=== PATIENT | female | born 1980 | race Caucasian/White ===

== ENCOUNTER → 2018-04-07 | Outpatient (CLI) | payer OTHER | LOC: M RAD 12:03 | DX: N63.20 Unspecified lump in the left breast, unspecified quadrant (principal); Z33.1 Pregnant state, incidental | CPT/HCPCS: 76642 ==

== ENCOUNTER → 2018-11-18 | Outpatient (CLI) | payer OTHER ==
[2018-11-18 17:22] LABS: BASO # 0.1 10^3/uL (0.0-0.2); BASO % 1.1 % (0.0-1.0); EOS # 0.1 10^3/uL (0.0-0.50); HEMATOCRIT 43.3 % (36.0-47.0); HEMOGLOBIN 14.3 g/dl (12.0-15.5); LYMPH # 2.5 10^3/uL (1.5-4.5); LYMPH % 38.4 % (24.0-44.0); MEAN CORPUSCULAR HEMOGLOBIN 30.4 pg (27.0-33.0); MEAN CORPUSCULAR VOLUME 91.9 fl (80.0-96.0); MONO # 0.6 10^3/uL (0.0-0.8); MONO % 9.3 % (0.0-5.0); NEUTROPHILS # 3.2 10^3/uL (1.8-7.7); NEUTROPHILS % 48.9 % (36.0-66.0); PLATELET COUNT, AUTOMATED 328 10^3/uL (150-450); RED BLOOD COUNT 4.71 10^6/uL (4.00-5.40); WHITE BLOOD COUNT 6.6 10^3/uL (4.0-10.0)
[2018-11-18 17:36] LABS: ALBUMIN 4.1 GM/DL (3.2-5.2); ALT/SGPT 23 U/L (12-78); BILIRUBIN,TOTAL 0.3 MG/DL (0.2-1.0); BLOOD UREA NITROGEN 6 MG/DL (7-18); CALCIUM LEVEL 9.4 MG/DL (8.5-10.1); CARBON DIOXIDE LEVEL 27 MEQ/L (21-32); CHLORIDE LEVEL 107 MEQ/L (98-107); CHOLESTEROL LEVEL 236 MG/DL (<200); CHOLESTEROL RISK RATIO 2.205 (<5); CREATININE FOR GFR 0.83 MG/DL (0.55-1.30); FERRITIN 26 NG/ML (8-252); FREE T4 0.75 NG/DL (0.76-1.46); GLOMERULAR FILTRATION RATE > 60.0 (>60); GLUCOSE, FASTING 92 MG/DL (70-100); HDL CHOLESTEROL 107 MG/DL (>40); IRON (FE) 74 UG/DL (50-170); LDL CHOLESTEROL 107 MG/DL (<100); NON-HDL-C 129 MG/DL; PERCENT SATURATION 21.4 % (13.2-45.0); POTASSIUM SERUM 4.1 MEQ/L (3.5-5.1); SODIUM LEVEL 141 MEQ/L (136-145); TOTAL IRON BINDING CAPACITY 345 UG/DL (250-450); TOTAL PROTEIN 7.1 GM/DL (6.4-8.2); TRIGLYCERIDES LEVEL 108 MG/DL (<150)
[2018-11-18 17:37] LABS: VITAMIN B12 LEVEL > 2000 PG/ML
[2018-11-18 17:39] LABS: FOLATE > 24.0 NG/ML
--- NOTE | 2018-11-19 01:20 | REP ---
Clinical: Right pelvic/hip pain. Technique: Neutral and frog lateral views of the right hip. Findings: Normal age appropriate appearance to the right hip. Osseous structures, joint spaces, and surrounding soft tissues are unremarkable. No overt osteoarthritic degenerative changes are identified. No acute fracture or dislocation. Impression: Age-appropriate right hip radiographs. Electronically Signed by Arthur Camacho MD 11/19/2018 01:12 A
--- NOTE | 2018-11-19 01:41 | REP ---
Clinical: Pelvic and perineal pain. Technique: Two AP views of the pelvis. Findings: Osseous structures, joint spaces, and surrounding soft tissues are normal for age. No significant arthritic changes are appreciated. No acute fracture or dislocation. Sacroiliac joints appear symmetric and normal. Impression: Normal age-appropriate pelvic radiograph. Electronically Signed by Arthur Camacho MD 11/19/2018 01:33 A
--- NOTE | 2018-11-19 02:04 | REP ---
Clinical: Right knee pain. Technique: AP, lateral, bilateral oblique and sunrise views of the right knee. Findings: Very subtle increase sclerosis to the tibial plateau with minimal predominantly medial joint space narrowing. Subtle fraying along the anterior patellar margin may reflect tendinopathy. Remainder examination is relatively normal. No acute fracture or dislocation. No effusion. Impression: Mild arthritic changes. Electronically Signed by Arthur Camacho MD 11/19/2018 01:56 A
== END ==
LOC: M SMT 14:22
PROVIDERS: ATTEND Physician Assistant
DX: M17.11 Unilateral primary osteoarthritis, right knee (principal); R10.2 Pelvic and perineal pain; N92.0 Excessive and frequent menstruation with regular cycle

== ENCOUNTER → 2019-01-13 | Outpatient (CLI) | payer OTHER ==
[2019-01-13 10:36] LABS: FREE T4 0.76 NG/DL (0.76-1.46); THYROID STIMULATING HORMONE 1.82 uIU/ML (0.358-3.740)
== END ==
LOC: M SMT 09:06
PROVIDERS: ATTEND Physician Assistant
DX: Z13.29 Encounter for screening for other suspected endocrine disorder (principal)

== ENCOUNTER → 2019-01-16 | Outpatient (CLI) | payer OTHER ==
--- NOTE | 2019-01-18 12:17 | REP ---
MRI RIGHT KNEE: TECHNIQUE: Axial proton density fat saturation, sagittal proton density T2 STIR, water excitation, coronal proton density, proton density fat saturation. Menisci demonstrate no evidence of a tear. The cruciate and collateral ligaments are intact. The extensor mechanism is intact. There is minor global chondromalacia. No osteochondral defect is seen. Bone marrow signal is homogeneous and unremarkable. There is no bone marrow edema or occult fracture. Medial and lateral patellar retinacula are intact. There is a small joint effusion, with a small amount of fluid extending into the popliteal fossa immediately. IMPRESSION: No evidence of meniscal tear. The cruciate and collateral ligaments are intact. There is mild global chondromalacia particularly in the medial joint compartment. There is a small joint effusion. Electronically Signed by Gutierrez Liu MD 01/18/2019 01:14 P
== END ==
LOC: M RAD 11:26
PROVIDERS: ATTEND Physician Assistant
DX: M22.41 Chondromalacia patellae, right knee (principal)

== ENCOUNTER → 2019-02-01 | Outpatient (CLI) | payer OTHER ==
--- NOTE | 2019-02-01 11:28 | REP ---
Clinical: Lower back pain. Technique: AP, lateral, bilateral oblique, flexion/extension, and coned-down views of the lumbosacral spine. Findings: Alignment and lordosis maintained. Vertebral bodies are intact and there is no evidence for acute fracture/compression injury or subluxation. Mild endplate sclerosis with mild hypertrophic facet changes and minimal disc space narrowing identified at L5-S1, L4-5, L3-4. Impression: Mild degenerative spondylosis at L3-4 through L5-S1. Electronically Signed by Arthur Camacho MD 02/01/2019 11:18 A
== END ==
LOC: M SMT 11:03
PROVIDERS: ATTEND Family Medicine
DX: M53.3 Sacrococcygeal disorders, not elsewhere classified (principal)

== ENCOUNTER → 2019-03-25 | Outpatient (CLI) | payer OTHER ==
[2019-03-25 14:10] LABS: BASO # 0.1 10^3/uL (0.0-0.2); EOS # 0.1 10^3/uL (0.0-0.5); EOS % 1.7 % (0.0-3.0); HEMATOCRIT 42.2 % (36.0-47.0); HEMOGLOBIN 13.8 g/dl (12.0-15.5); LYMPH # 2.1 10^3/uL (1.5-5.0); LYMPH % 36.4 % (24.0-44.0); MEAN CORPUSCULAR HEMOGLOBIN 29.9 pg (27.0-33.0); MEAN CORPUSCULAR HGB CONC 32.7 g/dl (32.0-36.5); MEAN CORPUSCULAR VOLUME 91.3 fl (80.0-96.0); MONO # 0.6 10^3/uL (0.0-0.8); MONO % 9.9 % (0.0-5.0); NEUTROPHILS # 2.9 10^3/uL (1.5-8.5); NEUTROPHILS % 50.8 % (36.0-66.0); PLATELET COUNT, AUTOMATED 253 10^3/uL (150-450); RED BLOOD COUNT 4.62 10^6/uL (4.00-5.40); WHITE BLOOD COUNT 5.8 10^3/uL (4.0-10.0)
[2019-03-25 14:26] LABS: ALBUMIN 4.1 GM/DL (3.2-5.2); ALT/SGPT 16 U/L (12-78); BILIRUBIN,TOTAL 0.5 MG/DL (0.2-1.0); BLOOD UREA NITROGEN 8 MG/DL (7-18); C REACTIVE PROTEIN QUANTITATIV < 0.30 MG/DL (0.00-0.30); CALCIUM LEVEL 8.7 MG/DL (8.5-10.1); CARBON DIOXIDE LEVEL 28 MEQ/L (21-32); CHLORIDE LEVEL 105 MEQ/L (98-107); FREE T4 0.86 NG/DL (0.76-1.46); GLOMERULAR FILTRATION RATE > 60.0 (>60); GLUCOSE, FASTING 96 MG/DL (70-100); MAGNESIUM LEVEL 2.1 MG/DL (1.8-2.4); POTASSIUM SERUM 4.1 MEQ/L (3.5-5.1); RHEUMATOID FACTOR QUANT < 10.0 IU/ML (<15.0); SODIUM LEVEL 140 MEQ/L (136-145); TOTAL 25(OH) VITAMIN D 37.6 NG/ML (30.0-100.0); TOTAL PROTEIN 7.2 GM/DL (6.4-8.2)
[2019-03-25 14:40] LABS: ERYTHROCYTE SEDIMENTATION RATE 4 mm/hr (0-20)
[2019-03-27 00:06] LABS: ANTINUCLEAR ANTIBODIES DIRECT Negative (Negative); CYCLIC CITRULLINATED PEPTIDE 3 units (0-19); Lyme Disease IgG/IgM Antibodie <0.91 ISR (0.00-0.90); Lyme Disease IgM Ab Quantitati <0.80 index (0.00-0.79)
== END ==
LOC: M SMT 11:04
PROVIDERS: ATTEND Family Medicine
DX: M54.5 Low back pain (principal)

== ENCOUNTER → 2019-11-10 | Outpatient (CLI) | payer OTHER ==
[2019-11-10 09:57] LABS: BASO # 0.1 10^3/uL (0.0-0.2); BASO % 1.4 % (0.0-1.0); EOS # 0.1 10^3/uL (0.0-0.5); EOS % 2.8 % (0.0-3.0); HEMATOCRIT 42.4 % (36.0-47.0); HEMOGLOBIN 14.4 g/dl (12.0-15.5); LYMPH # 1.9 10^3/uL (1.5-5.0); LYMPH % 38.4 % (24.0-44.0); MEAN CORPUSCULAR HEMOGLOBIN 30.5 pg (27.0-33.0); MEAN CORPUSCULAR VOLUME 89.8 fl (80.0-96.0); MONO # 0.5 10^3/uL (0.0-0.8); MONO % 10.7 % (0.0-5.0); NEUTROPHILS # 2.3 10^3/uL (1.5-8.5); NEUTROPHILS % 46.5 % (36.0-66.0); PLATELET COUNT, AUTOMATED 263 10^3/uL (150-450); RED BLOOD COUNT 4.72 10^6/uL (4.00-5.40)
[2019-11-10 10:08] LABS: ALBUMIN 4.1 GM/DL (3.2-5.2); ALT/SGPT 21 U/L (12-78); BILIRUBIN,TOTAL 0.5 MG/DL (0.2-1.0); BLOOD UREA NITROGEN 9 MG/DL (7-18); CALCIUM LEVEL 8.6 MG/DL (8.5-10.1); CARBON DIOXIDE LEVEL 27 MEQ/L (21-32); CHLORIDE LEVEL 106 MEQ/L (98-107); CHOLESTEROL LEVEL 206 MG/DL (<200); CREATININE FOR GFR 0.67 MG/DL (0.55-1.30); FERRITIN 14 NG/ML (8-252); FREE T4 0.82 NG/DL (0.76-1.46); GLOMERULAR FILTRATION RATE > 60.0 (>58); GLUCOSE, FASTING 88 MG/DL (70-100); HDL CHOLESTEROL 99 MG/DL (>40); IRON (FE) 75 UG/DL (50-170); LDL CHOLESTEROL 97 MG/DL (<100); NON-HDL-C 107 MG/DL; PERCENT SATURATION 20.5 % (13.2-45.0); POTASSIUM SERUM 4.1 MEQ/L (3.5-5.1); SODIUM LEVEL 140 MEQ/L (136-145); TOTAL IRON BINDING CAPACITY 366 UG/DL (250-450); TOTAL PROTEIN 7.3 GM/DL (6.4-8.2); TRIGLYCERIDES LEVEL 51 MG/DL (<150)
[2019-11-10 10:16] LABS: TOTAL 25(OH) VITAMIN D 40.1 NG/ML (30.0-100.0)
== END ==
LOC: M LAB 08:52
PROVIDERS: ATTEND Family Medicine
DX: Z13.220 Encounter for screening for lipoid disorders (principal); Z13.29 Encounter for screening for other suspected endocrine disorder; M79.675 Pain in left toe(s); D50.9 Iron deficiency anemia, unspecified

== ENCOUNTER → 2020-01-14 | Outpatient (CLI) | payer OTHER ==
--- NOTE | 2020-01-16 07:20 | REP ---
BILATERAL FOOT COMPLETE: 01/14/2020 CLINICAL HISTORY: Bilateral foot pain. No known injury. Symptoms increasing over the past 6 months. FINDINGS: RIGHT FOOT: Four views demonstrate MTP joints without erosion, sclerosis, or narrowing. The IP joints intact. Metatarsals without fracture or focal lesion. Tarsometatarsal joints, tarsal bones and their articulations and the hindfoot articulations with the tarsal bones are normal. No heel spurs. Subtalar joints intact. Distal tibia and fibula unremarkable. IMPRESSION: 1. Negative right foot series for any acute finding. LEFT FOOT: There is very minimal degenerative change at the 1st MTP joint with small marginal osteophytes and slight lateral deviation of the great toe at that joint. No erosive changes. No abnormal soft tissue calcifications. The other MTP at all IP joints are normal. Metatarsals are otherwise unremarkable. Tarsal bones and their articulations and the hindfoot and metatarsals are intact. No heel spurs. Subtalar joints are intact. IMPRESSION: 1. Some mild osteoarthritic changes of the 1st MTP joint as described. No erosions, abnormal soft tissue calcifications, or other acute findings. Electronically Signed by Kalyan Alexandre MD 01/16/2020 08:40 A
== END ==
LOC: M RAD 01-10 16:55
PROVIDERS: ATTEND Family Medicine
DX: M25.571 Pain in right ankle and joints of right foot (principal); M25.572 Pain in left ankle and joints of left foot

== ENCOUNTER → 2020-02-01 | Outpatient (CLI) | payer OTHER | LOC: M LAB 12:48 | DX: Z11.2 Encounter for screening for other bacterial diseases (principal) ==

== ENCOUNTER → 2020-05-02 | Outpatient (CLI) | payer OTHER ==
--- NOTE | 2020-05-02 10:10 | REP ---
INDICATION: R92.8 LT BOTH ABN AND INCONCLUSIVE FINDINGS,RT Z12.39 SCREENING. Dense breasts. COMPARISON: Ultrasound left breast 04/07/2018. TECHNIQUE: Real-time sonographic evaluation of bilateral breasts performed. FINDINGS: No cystic or solid nodule is seen in the right breast. In the left breast there is again noted a hypoechoic nodule at 9 o'clock approximately 5 cm from the nipple. It measures 8 x 9 x 4 mm and is unchanged since the prior ultrasound of 04/07/2018. No other cystic or solid nodule is seen in the left breast. IMPRESSION: BIRADS/ACR category 2 benign. Stable oval hypoechoic nodule left breast 9 o'clock consistent with a fibroadenoma. No other cystic or solid nodule bilaterally. RECOMMENDATION: Recommend annual screening mammography, with supplemental bilateral whole breast ultrasound if the patient has dense breasts. <Electronically signed by Gutierrez Liu > 05/02/20 [id number]
== END ==
LOC: M WHC 09:03
PROVIDERS: ATTEND Internal Medicine
DX: R92.8 Other abnormal and inconclusive findings on diagnostic imaging of breast (principal)

== ENCOUNTER → 2020-05-26 | Outpatient (CLI) | payer OTHER ==
[2020-05-26 17:32] LABS: ALBUMIN 4.1 GM/DL (3.2-5.2); ALT/SGPT 17 U/L (12-78); BILIRUBIN,DIRECT < 0.1 MG/DL (0.0-0.2); BILIRUBIN,TOTAL 0.3 MG/DL (0.2-1.0); TOTAL PROTEIN 7.6 GM/DL (6.4-8.2)
== END ==
LOC: M LAB 15:50
PROVIDERS: ATTEND Internal Medicine
DX: Z51.81 Encounter for therapeutic drug level monitoring (principal); Z79.899 Other long term (current) drug therapy

== ENCOUNTER → 2020-06-27 | Outpatient (CLI) | payer OTHER ==
[2020-06-27 15:39] LABS: ESTRADIOL 40.5 PG/ML; FOLLICLE STIMULATING HORMONE 9.6 mIU/mL; LUTEINIZING HORMONE 4.7 mIU/mL; PROGESTERONE 0.21 NG/ML
== END ==
LOC: M LAB 14:13
PROVIDERS: ATTEND Nurse Practitioner Adult Health
DX: F32.81 Premenstrual dysphoric disorder (principal)